=== PATIENT | male | born 1980 | race Caucasian/White ===

== ENCOUNTER 2019-10-05 23:42 | Emergency (ER) | payer OTHER ==
[~2019-10-05] VITALS: Ht 177.8 cm; Wt 99.8 kg
[2019-10-06 00:31] LABS: BASOPHILS ABSOLUTE AUTO 0.02 K/mm3 (0.00-0.23); BASOPHILS PERCENT AUTO 0 % (0-2); EOSINOPHILS ABSOLUTE AUTO 0.11 K/mm3 (0.00-0.68); EOSINOPHILS PERCENT AUTO 2 % (0-6); Hematocrit 45.5 % (37.0-53.0); Hemoglobin 15.9 g/dL (13.5-17.5); IMMATURE GRAN ABSOLUTE AUTO 0.04 K/mm3 (0.00-0.10); IMMATURE GRAN PERCENT AUTO 1 % (0-1); LYMPHOCYTES ABSOLUTE AUTO 2.75 K/mm3 (0.84-5.20); LYMPHOCYTES PERCENT AUTO 38 % (21-46); MONOCYTES ABSOLUTE AUTO 0.56 K/mm3 (0.16-1.47); MONOCYTES PERCENT AUTO 8 % (4-13); Mean Corpuscular HGB 31.3 pg (26.0-34.0); Mean Corpuscular HGB Conc 34.9 g/dL (31.5-36.5); Mean Corpuscular Volume 90 fL (80-100); Mean Platelet Volume 9.6 fL (9.1-12.4); NEUTROPHILS ABSOLUTE AUTO 3.78 K/mm3 (1.96-9.15); NEUTROPHILS PERCENT AUTO 52 % (41-73); Platelet Count 248 K/mm3 (150-400); RDW Coefficient Variation 12.1 % (11.7-14.2); RDW Standard Deviation 39.8 fL (35.1-46.3); Red Blood Cell Count 5.08 M/mm3 (4.30-5.90); White Blood Cell Count 7.26 K/mm3 (4.00-11.30)
[2019-10-06 00:50] LABS: Alanine Aminotransfer (ALT/SGP 68 U/L (12-78); Albumin, Blood 3.6 g/dL (3.4-5.0); Alk Phos 103 U/L (50-136); Anion Gap 7 mmol/L (6-16); Aspartate Aminotrans (AST/SGOT 33 U/L (12-37); Bilirubin, Total 0.5 mg/dL (0.1-1.0); Blood Urea Nitrogen 16 mg/dL (8-24); Bun/Creatinine Ratio 17.9 (12.0-20.0); CO2, Blood 25 mmol/L (21-32); Calcium, Blood 8.8 mg/dL (8.5-10.1); Chloride, Blood 109 mmol/L (98-108); Creatinine, Blood 0.89 mg/dL (0.60-1.20); Globulin, Blood 3.6 g/dL (2.2-4.0); Glomerular Filtration Rate >60 (60-); Glucose, Blood 124 mg/dL (70-99); Potassium, Blood 3.4 mmol/L (3.5-5.5); Sodium, Blood 141 mmol/L (136-145); Total Protein, Blood 7.2 g/dL (6.4-8.2)
== END 2019-10-06 04:32 | disposition home or self-care (01) ==
LOC: ER 23:42
PROVIDERS: Emergency Medicine
DX: R10.10 Upper abdominal pain, unspecified (principal)
CPT/HCPCS: 36415; 80053; 83690; 85025; 86850; 86900; 86901; 93005; 93010; 96374; 99283-25; J1885

== ENCOUNTER 2023-06-23 16:18 | Observation (INO) | payer OTHER ==
[~2023-06-23] VITALS: Ht 175.3 cm; Wt 93.1 kg
[2023-06-23 16:51] LABS: BASOPHILS ABSOLUTE AUTO 0.03 K/mm3 (0.00-0.23); BASOPHILS PERCENT AUTO 0 % (0-2); EOSINOPHILS ABSOLUTE AUTO 0.03 K/mm3 (0.00-0.68); EOSINOPHILS PERCENT AUTO 0 % (0-6); IMMATURE GRAN ABSOLUTE AUTO 0.03 K/mm3 (0.00-0.10); IMMATURE GRAN PERCENT AUTO 0 % (0-1); LYMPHOCYTES PERCENT AUTO 16 % (21-46); MONOCYTES ABSOLUTE AUTO 0.98 K/mm3 (0.16-1.47); MONOCYTES PERCENT AUTO 10 % (4-13); Mean Corpuscular HGB 26.6 pg (26.0-34.0); Mean Corpuscular HGB Conc 32.4 g/dL (31.5-36.5); Mean Corpuscular Volume 82 fL (80-100); Mean Platelet Volume 8.8 fL (9.1-12.4); NEUTROPHILS ABSOLUTE AUTO 7.64 K/mm3 (1.96-9.15); NEUTROPHILS PERCENT AUTO 74 % (41-73); Platelet Count 292 K/mm3 (150-400); RDW Coefficient Variation 13.1 % (11.7-14.2); RDW Standard Deviation 38.8 fL (35.1-46.3); Red Blood Cell Count 4.51 M/mm3 (4.30-5.90); White Blood Cell Count 10.31 K/mm3 (4.00-11.30)
[2023-06-23 17:36] LABS: Albumin, Blood 3.5 g/dL (3.4-5.0); Albumin/Globulin Ratio 0.7 (0.8-1.8); Bilirubin, Total 0.4 mg/dL (0.1-1.0); Bun/Creatinine Ratio 7.2 (12.0-20.0); Calcium, Blood 9.3 mg/dL (8.5-10.1); Creatinine, Blood 0.98 mg/dL (0.60-1.20); Globulin, Blood 4.8 g/dL (2.2-4.0); Potassium, Blood 3.4 mmol/L (3.5-5.5); Total Protein, Blood 8.3 g/dL (6.4-8.2)
[2023-06-23 18:39] LABS: Source, Urine Clean Catch
[2023-06-23 18:56] LABS: Appearance, Urine Clear (Clear); Bilirubin, Urine Neg (Neg); Blood, Urine Neg (Neg); Color, Urine Yellow (P-Yellow); Glucose Qualitative, Urine Neg (Neg); Ketones, Urine Neg (Neg); Leukocyte Esterase, Urine Neg (Neg); Nitrite, Urine Neg (Neg); Protein, Urine Neg (Neg); Urobilinogen, Urine NORM (Normal)
[2023-06-23 22:00] VITALS: BP 124/102
--- NOTE | 2023-06-23 22:36 | NUR ---
ARRIVAL TO UNIT PT TRANSPORTED VIA GURNEY. WENT TO BATHROOM INDEPENDTLY UPON ARIIVAL, THEN TO BED. PT HAS NAUSEA, NO VOMITING. ENDORSES PAIN IN RLQ. MEDICATED PER EMAR. AT BEDSIDE. NO OHTER CONCERNS AT THIS TIME. CALL LIGHT WITHIN REACH.
[2023-06-24] VITALS (14 sets, daily range): BP systolic 119–158; BP diastolic 72–108
--- NOTE | 2023-06-24 05:00 | NUR ---
SHIFT SUMMARY PT A&O X4, RESTED T/O NIGHT. ENDORSES PAIN AND NAUSEA WHEN AWAKE, ABLE TO MANAGE PER EMAR. VSS, VOIDING, UP TO THE BATHROOM. NPO AFTER MIDNIGHT, FLUIDS RUNNING. AT BEDSIDE. NO OTHER CONCERNS AT THIS TIME. CALL LIGHT WITHIN REACH.
--- NOTE | 2023-06-24 12:17 | NUR ---
[facility]
--- NOTE | 2023-06-24 13:11 | NUR ---
AMANDEEP inTO Day Surgery. Pre-Op teaching done. Pt verbalizes understanding. Patient confirms NPO status and agrees with scheduled surgery. History, Chart, Medications and Allergies reviewed before start of procedure.
--- NOTE | 2023-06-24 13:49 | NUR ---
06/24/23 1349 Remigio CastilloSYJason STARTED IN PRE OP AND FINISHED IN OR.
--- NOTE | 2023-06-24 14:50 | NUR ---
POST OP ARRIVAL DROWSY BUT OPENS EYES TO NAME. ABD SOFT w/ LAP SITES x 3 w/ WOUND GLUE. NO DRNG NOTED. LUNGS CLEAR ON 2L NC; WEANED TO 1L. WATER OFFERED & PT DECLINES; REQUESTS TO SLEEP. AT BEDSIDE.
[2023-06-24] MEDS ORDERED: Norco 5-325 Ta1 EACH PO (16:10)
--- NOTE | 2023-06-24 18:38 | NUR ---
DISCHARGE WAS INITIALLY DROWSY, BUT AFTER NAP FELT BETTER. EATING & DRINKING WELL. VOIDED x 1 POST OP. DENIES PASSING GAS. PAIN REASONABLY CONTROLLED. AMBULATING. ESCORTED OUT VIA WC.
== END 2023-06-24 18:38 | disposition home or self-care (01) ==
LOC: ER 16:18 → SURS 16:19
PROVIDERS: Student in an Organized Health Care Education/Training Program; ADMIT Surgery
PROC: 0DTJ4ZZ Resection of Appendix, Percutaneous Endoscopic Approach (ICD-10-PCS; principal; 2023-06-24 12:30)
DX: K35.33 Acute appendicitis with perforation, localized peritonitis, and gangrene, with abscess (principal)
CPT/HCPCS: 74177; 80053; 81003; 83690; 85025; 88304; 93005; 93010; 96365-59; 96366; 96375; 96376; 99285-25; A9270; G0378; J0295; J1100; J1170; J1885; J2250; J2405; J2704; J3010; J7030; J7120; Q9967